=== PATIENT | female | born 1985 | race Caucasian/White ===

== ENCOUNTER 2016-09-20 08:20 | Emergency (ER) | payer OTHER ==
[2016-09-20 08:35] VITALS: BP 137/85
--- NOTE | 2016-09-20 08:49 | UC ---
Respiratory Complaint HPI - HPI Summary HPI Summary: ONSET TWO WEEKS AGO WITH SORE THROAT, SINUS CONGESTION. COUGH , PRODUCTIVE AT TIMES . NO FEVER OR CHILLS. no fever. glands were swollen when she had ST but they resolved/ no white spots. mild wheezing sporadic. may have had to use inhaler at some point with illness. Here with BF Carlin Yao who is here being seen in same room with same sx. + smoker. trying to quit. She has taken doxy before with good results. - History of Current Complaint Chief Complaint: UCRespiratory Stated Complaint: COUGH Time Seen by Provider: 09/20/16 08:48 Hx Last Menstrual Period: 08/31/16 - Allergies/Home Medications Allergies/Adverse Reactions: Allergies Allergy/AdvReac Type Severity Reaction Status Date / Time Penicillins Allergy Hives Verified 09/20/16 08:26 nicotine patch Allergy Swelling Uncoded 09/20/16 08:26 Home Medications: Home Medications Samnjbtukmjyz-Mrrbvctlsn-Cnyth [Destinee-[place] Plus Night C] 1 cap PO PRN [History] PMH/Surg Hx/FS Hx/Imm Hx Previously Healthy: Yes Endocrine History Of: Denies: Diabetes Cardiovascular History Of: Reports: Hypertension Denies: Cardiac Disorders Respiratory History Of: Denies: COPD - smoker, Asthma, Bronchitis, Pneumonia, Pulmonary Embolism - Surgical History Surgical History: None - Family History Known Family History: Positive: Other - dtr with asthma Negative: Cardiac Disease, Diabetes - Social History Alcohol Use: Rare Substance Use Type: None Smoking Status (MU): Light Every Day Tobacco Smoker Type: Cigarettes Amount Used/How Often: 1/2 PPD Length of Time of Smoking/Using Tobacco: 14 yrs Have You Smoked in the Last Year: Yes Household Exposure Type: Cigarettes Review of Systems Constitutional: Negative Skin: Negative Eyes: Negative ENT: Sore Throat, Nasal Discharge Respiratory: Cough Cardiovascular: Negative Gastrointestinal: Negative Genitourinary: Negative Motor: Negative Neurovascular: Negative Musculoskeletal: Negative Neurological: Negative Psychological: Negative All Other Systems Reviewed And Are Negative: Yes Physical Exam Triage Information Reviewed: Yes Appearance: Well-Nourished Vital Signs: Initial Vital Signs Temp 97.5 F 09/20/16 08:29 Pulse 75 09/20/16 08:29 Resp 18 09/20/16 08:29 BP 137/85 09/20/16 08:29 Pulse Ox 100 09/20/16 08:29 Vital Signs Reviewed: Yes Eye Exam: Normal Eyes: Positive: Conjunctiva Clear ENT: Positive: Pharyngeal erythema - + PND, no sinus tenderness, Nasal congestion, TMs normal. Negative: Tonsillar swelling, Tonsillar exudate Dental Exam: Normal Neck exam: Normal Neck: Positive: Supple, Nontender, No Lymphadenopathy Respiratory Exam: Normal Respiratory: Positive: Lungs clear, No respiratory distress, No accessory muscle use, Decreased breath sounds. Negative: Crackles, Rhonchi, Stridor, Wheezing Cardiovascular Exam: Normal Cardiovascular: Positive: RRR, No Murmur, Pulses Normal, Brisk Capillary Refill Abdominal Exam: Normal Abdomen Description: Positive: Nontender, Soft. Negative: CVA Tenderness (R), CVA Tenderness (L) Musculoskeletal Exam: Normal Neurological Exam: Normal Psychological Exam: Normal Skin Exam: Normal UC Diagnostic Evaluation - Laboratory O2 Sat by Pulse Oximetry: 100 Respiratory Course/Dx - Differential Dx/Diagnosis Differential Diagnosis/HQI/PQRI: Asthma, Bronchitis, Lower Resp Infection, Sinusitis Provider Diagnoses: Bronchitis, smoker Discharge - Discharge Plan Condition: Stable Disposition: HOME Prescriptions: Albuterol HFA INHALER* [Ventolin HFA Inhaler*] 2 puff INH Q4H PRN #1 mdi PRN Reason: Cough Doxycycline Hyclate [Doxycycline Hyclate Dr] 100 mg PO BID #20 tab Referrals: Anahy Rivera, [employer] [Primary Care Provider] - 4 Days Additional Instructions: Fluids, rest. stopping smoking will help. Take probiotic while on antibiotic. Make sure to use back up control because the antibiotic can interfere with the control.
== END 2016-09-20 09:21 | disposition home or self-care (01) ==
LOC: UCCORT 08:20
DX: J40 Bronchitis, not specified as acute or chronic (principal); F17.210 Nicotine dependence, cigarettes, uncomplicated; Z88.0 Allergy status to penicillin
CPT/HCPCS: 99212; G0463

== ENCOUNTER 2016-11-16 10:27 | Emergency (ER) | payer OTHER ==
[2016-11-16 11:58] VITALS: BP 144/87
--- NOTE | 2016-11-16 12:27 | UC ---
UC Dental HPI - HPI Summary HPI Summary: patient has had recent dental work, has appointment for teeth removal on 11/28. had has dental pain and it is starting to radiate to her ear. - History of Current Complaint Chief Complaint: UCDentalProblem Stated Complaint: DENTAL Time Seen by Provider: 11/16/16 12:13 Hx Obtained From: Patient Hx Last Menstrual Period: 3 weeks ago, nexplanon & oral control ?: No Onset/Duration: Sudden Onset, Lasting Days Severity: Severe Pain Intensity: 8 Pain Scale Used: 0-10 Numeric Aggravating: Chewing Alleviating: Nothing Related History: Previous Dental Care on Same Tooth - Allergies/Home Medications Allergies/Adverse Reactions: Allergies Allergy/AdvReac Type Severity Reaction Status Date / Time Penicillins Allergy Hives Verified 11/16/16 11:57 nicotine patch Allergy Swelling Uncoded 11/16/16 11:57 PMH/Surg Hx/FS Hx/Imm Hx Previously Healthy: Yes Endocrine History Of: Denies: Diabetes Cardiovascular History Of: Reports: Hypertension Denies: Cardiac Disorders Respiratory History Of: Denies: COPD - smoker, Asthma, Bronchitis, Pneumonia, Pulmonary Embolism - Surgical History Surgical History: None - Family History Known Family History: Positive: None, Other - dtr with asthma Negative: Cardiac Disease, Diabetes - Social History Alcohol Use: Rare Substance Use Type: None Smoking Status (MU): Light Every Day Tobacco Smoker Type: Cigarettes Amount Used/How Often: 1/2 PPD Length of Time of Smoking/Using Tobacco: 14 yrs Have You Smoked in the Last Year: Yes Household Exposure Type: Cigarettes Review of Systems Constitutional: Negative Skin: Negative Eyes: Negative ENT: Dental Pain, Ear Ache Respiratory: Negative Cardiovascular: Negative Gastrointestinal: Negative Genitourinary: Negative Motor: Negative Neurovascular: Negative Musculoskeletal: Negative Neurological: Headache Psychological: Negative All Other Systems Reviewed And Are Negative: Yes Physical Exam Triage Information Reviewed: Yes Appearance: Well-Appearing, Well-Nourished, Pain Distress Vital Signs: Initial Vital Signs Temp 98.5 F 11/16/16 11:55 Pulse 75 11/16/16 11:55 Resp 14 11/16/16 11:55 BP 144/87 11/16/16 11:55 Pulse Ox 99 11/16/16 11:55 Vital Signs Reviewed: Yes Eye Exam: Normal ENT Exam: Normal ENT: Positive: Normal ENT inspection, Hearing grossly normal, Pharyngeal erythema, TMs normal Dental: Positive: Gross Decay/Caries @, Dental Fracture @, Abscess @ Neck exam: Normal Neck: Positive: Supple, Nontender Respiratory Exam: Normal Respiratory: Positive: Chest non-tender, Lungs clear, Normal breath sounds Cardiovascular Exam: Normal Cardiovascular: Positive: RRR, No Murmur, Pulses Normal Abdominal Exam: Normal Abdomen Description: Positive: Nontender, No Organomegaly, Soft Bowel Sounds: Positive: Present Musculoskeletal Exam: Normal Musculoskeletal: Positive: Strength Intact, ROM Intact, No Edema Neurological Exam: Normal Neurological: Positive: Alert, Muscle Tone Normal Psychological Exam: Normal Skin Exam: Normal Dental Complaint Course/Dx - Course Course Of Treatment: hx obtained, exam performed, meds prescribed for dental abcess, educated on pain relief and oral hygiene - Differential Dx/Diagnosis Differential Diagnosis/Dx: Dental Abscess, Dental Caries, Gingivitis, Peridontic Disease, Peritonsillar Abcess, Pharyngitis, TMJ Syndrome Provider Diagnoses: dental abcess, ear pain, dental caries Discharge - Discharge Plan Condition: Stable Disposition: HOME Prescriptions: Clindamycin Cap(NF) [Cleocin 300 mg Cap(NF)] 300 mg PO TID #30 cap HYDROcodone/ACETAMIN 5-325 MG* [[place] 5-325 TAB*] 1 tab PO Q8H PRN #15 tab MDD 15 mg PRN Reason: Pain Patient Education Materials: Dental Abscess (ED) Additional Instructions: take the medication as prescribed. continue with mouth rinses, Follow up with your dentist at upcoming appointment, soon if needed.
== END 2016-11-16 12:53 | disposition home or self-care (01) ==
LOC: UCCORT 10:27
DX: K04.7 Periapical abscess without sinus (principal); K02.9 Dental caries, unspecified; H92.09 Otalgia, unspecified ear; Z88.0 Allergy status to penicillin; F17.210 Nicotine dependence, cigarettes, uncomplicated
CPT/HCPCS: 99212; G0463

== ENCOUNTER 2017-04-27 09:45 | Emergency (ER) | payer SELFPAY ==
[2017-04-27 10:25] VITALS: BP 116/64
--- NOTE | 2017-04-27 10:45 | UC ---
Skin Complaint HPI - HPI Summary HPI Summary: 31 y/o female presents to the urgent care c/o insect bites in her LF foot and LF ring finger 2 days. Pt states now her medial aspect of foot is getting swollen, itches and painful. Pain is 6/10. Pt denies fever, SOB, chest pain,N/V/ D - History of Current Complaint Chief Complaint: UCSkin Time Seen by Provider: 04/27/17 10:40 Stated Complaint: SKIN CONCERN Hx Obtained From: Patient Hx Last Menstrual Period: 04/12/17 ?: No Onset/Duration: Gradual Onset, Lasting Days, Still Present Timing: Constant Onset Severity: Mild Current Severity: Moderate Pain Intensity: 6 Pain Scale Used: 0-10 Numeric Location: Discrete - LF foot and LF #4 ring finger Character: Swelling, Pruritus, Pain, Redness, Raised, Painful Aggravating: Touch Alleviating: Antihistamines Associated Signs & Symptoms: Positive: Negative. Negative: Nausea, Vomiting, Numbness, Thirst, Difficulty Breathing, Fever, Wheezing, Throat Tightening, Red Streaks Related History: Insect Bite/Sting - Allergy/Home Medications Allergies/Adverse Reactions: Allergies Allergy/AdvReac Type Severity Reaction Status Date / Time Penicillins Allergy Hives Verified 04/27/17 10:20 nicotine patch Allergy Swelling Uncoded 04/27/17 10:20 Home Medications: Home Medications Etonogestrel IMPLANT(NF) [Implanon (NF)-not available] 68 mg IMPLANT SEE INSTRUCTIONS 04/27/17 [History Confirmed 04/27/17] Review of Systems Constitutional: Negative Skin: Rash - LF foot and LF ring finger Eyes: Negative ENT: Negative Respiratory: Negative Cardiovascular: Negative Gastrointestinal: Negative Genitourinary: Negative Motor: Negative Neurovascular: Negative Musculoskeletal: Negative Neurological: Negative Psychological: Negative All Other Systems Reviewed And Are Negative: Yes PMH/Surg Hx/FS Hx/Imm Hx Previously Healthy: Yes Cardiovascular History: Hypertension - Surgical History Surgical History: None - Family History Known Family History: Positive: Hypertension, Other - dtr with asthma Negative: Cardiac Disease, Diabetes - Social History Occupation: Employed Full-time Lives: With Family Alcohol Use: Rare Substance Use Type: None Smoking Status (MU): Heavy Every Day Tobacco Smoker Type: Cigarettes Amount Used/How Often: 1/2 PPD Length of Time of Smoking/Using Tobacco: 14 yrs Have You Smoked in the Last Year: Yes Household Exposure Type: Cigarettes Physical Exam Triage Information Reviewed: Yes Appearance: Well-Appearing, No Pain Distress, Well-Nourished, Obese Vital Signs: Initial Vital Signs Temp 97.6 F 04/27/17 10:21 Pulse 58 04/27/17 10:21 Resp 16 04/27/17 10:21 BP 116/64 04/27/17 10:21 Pulse Ox 100 04/27/17 10:21 Vital Signs Reviewed: Yes Eye Exam: Normal Eyes: Positive: Conjunctiva Clear ENT Exam: Normal ENT: Positive: Normal ENT inspection, Hearing grossly normal, Pharynx normal, TMs normal Dental Exam: Normal Neck exam: Normal Neck: Positive: Supple, Nontender, No Lymphadenopathy Respiratory Exam: Normal Respiratory: Positive: Chest non-tender, Lungs clear, Normal breath sounds Cardiovascular Exam: Normal Cardiovascular: Positive: RRR, No Murmur, Pulses Normal, Brisk Capillary Refill Abdominal Exam: Normal Abdomen Description: Positive: Nontender, No Organomegaly, Soft. Negative: CVA Tenderness (R), CVA Tenderness (L) Bowel Sounds: Positive: Present Musculoskeletal Exam: Normal Musculoskeletal: Positive: Strength Intact, ROM Intact, No Edema Neurological Exam: Normal Psychological Exam: Normal Skin: Positive: rashes - Left foot medial aspect with erythemaotus with indistict borders, mild induration, tender to palaption, central yellowish drainage. Size 2cm x2cm. LF #4 phalanx with 2 erythemaotus papaules s/o insect bites Course/Dx - Course Course Of Treatment: 31 y/o female presents to the urgent care c/o insect bites in her LF foot and LF ring finger 2 days. Pt states now her medial aspect of foot is getting swollen, itches and painful. Pain is 6/10. Pt denies fever, SOB , chest pain,N/V/D. Hx obtained. Pt Rx Bactrim PO for cellulitis, Benadryl for Pruritis. Pt advised if redness doubles in size in more than 48hrs and she develops fever to go to the ER for further treatment . Pt understood and agreed. - Differential Diagnoses - Skin Complaint Differential Diagnoses: Allergic Reaction, Cellulitis, Local Allergic Reaction, MRSA, Tick Born Illness, Urticaria - Diagnoses Provider Diagnoses: 1-Left foot cellulitis s/p insect bite Discharge - Discharge Plan Condition: Stable Disposition: HOME Prescriptions: Bacitracin OINTMENT* 1 applic TOPICAL TID #1 tube Sulfamethox/Trimethoprim DS* [Bactrim DS 800/160 TAB*] 1 tab PO BID #14 tab diPHENhydraMINE PO* [Benadryl PO 25 MG TAB*] 25 mg PO TID PRN #15 tab PRN Reason: Pruritis Patient Education Materials: Insect Bite or Sting (ED) Referrals: Anahy Rivera RESOURCE TECHNICIAN [Primary Care Provider] - If Needed Additional Instructions: Please take full course of antibiotic as directed to avoid resistance. Take the Benadryl Po to alleviate itchiness. If symptoms do not improve please return to the urgent care or f/u with your PCP for further management.
== END 2017-04-27 11:19 | disposition home or self-care (01) ==
LOC: UCCORT 09:45
DX: S90.862A Insect bite (nonvenomous), left foot, initial encounter (principal); L03.116 Cellulitis of left lower limb; W57.XXXA Bitten or stung by nonvenomous insect and other nonvenomous arthropods, initial encounter; Y93.9 Activity, unspecified; Y92.9 Unspecified place or not applicable; I10 Essential (primary) hypertension; E66.9 Obesity, unspecified; Z88.0 Allergy status to penicillin; F17.210 Nicotine dependence, cigarettes, uncomplicated
CPT/HCPCS: 99212; G0463

== ENCOUNTER 2018-01-13 11:51 | Emergency (ER) | payer OTHER ==
[2018-01-13 12:14] VITALS: BP 119/66
--- NOTE | 2018-01-13 12:48 | UC ---
Back Pain HPI - HPI Summary HPI Summary: PT C/O A 1 MONTH HX NON TRAUMATIC PAIN IN HER LOW BACK THAT SOMETIMES RADIATES INTO BOTH LEGS. NO HX INJURY, ABDOMENAL PAIN, FEVER, IVDA, BOWEL/BLADDER DYSFUNCTION. SEEN [facility] ER 3 WEEKS AGO AND HAD NEG XRAYS. TX MM RELAXOR. TAKING OTC NSAID(ALEVE). STANDS AT WORK. - History of Current Complaint Chief Complaint: UCBackPain Stated Complaint: LOWER BACK PAIN & SPASMS Time Seen by Provider: 01/13/18 12:40 Hx Obtained From: Patient Hx Last Menstrual Period: 12/13/17 Onset/Duration: Gradual Onset Timing: Constant Pain Intensity: 8 Character: Aching Aggravating Factor(s): Movement Alleviating Factor(s): Nothing Associated Signs And Symptoms: Negative: Weakness, Numbness, Tingling, Abdominal Pain, Flank Pain, Weight Loss - Risk Factors AAA Risk Factors: Negative Cauda Equina Risk Factors: Negative Epidural Abscess Risk Factors: Negative - Allergies/Home Medications Allergies/Adverse Reactions: Allergies Allergy/AdvReac Type Severity Reaction Status Date / Time Penicillins Allergy Hives Verified 01/13/18 12:15 nicotine patch Allergy Swelling Uncoded 01/13/18 12:15 PMH/Surg Hx/FS Hx/Imm Hx Cardiovascular History: Hypertension - Surgical History Surgical History: None - Family History Known Family History: Positive: None, Hypertension, Other - dtr with asthma Negative: Cardiac Disease, Diabetes - Social History Occupation: Employed Full-time Lives: With Family Alcohol Use: Rare Substance Use Type: None Smoking Status (MU): Heavy Every Day Tobacco Smoker Type: Cigarettes Amount Used/How Often: 1/2 PPD Length of Time of Smoking/Using Tobacco: 14 yrs Have You Smoked in the Last Year: Yes Household Exposure Type: Cigarettes - Immunization History Vaccination Up to Date: Yes Review of Systems Constitutional: Negative Skin: Negative Eyes: Negative ENT: Negative Respiratory: Negative Cardiovascular: Negative Gastrointestinal: Negative Genitourinary: Negative Motor: Negative Neurovascular: Negative Musculoskeletal: Other: - PAIN LOW BACK WITH EPISODIC SHARP PAINS INTO BACKS OF LEGS WITH CERTAIN MOVEMENT. Neurological: Negative Psychological: Negative All Other Systems Reviewed And Are Negative: Yes Physical Exam Triage Information Reviewed: Yes Appearance: Well-Appearing Vital Signs: Initial Vital Signs Temp 99.7 F 01/13/18 12:08 Pulse 62 01/13/18 12:08 Resp 16 01/13/18 12:08 BP 119/66 01/13/18 12:08 Pulse Ox 99 01/13/18 12:08 Vital Signs Reviewed: Yes Eyes: Positive: Conjunctiva Clear ENT: Positive: Normal ENT inspection Neck: Positive: Supple, Nontender, No Lymphadenopathy Respiratory: Positive: Lungs clear, Normal breath sounds Cardiovascular: Positive: RRR, No Murmur, Pulses Normal Abdomen Description: Positive: Nontender, No Organomegaly, Soft. Negative: Distended, Guarding Bowel Sounds: Positive: Present Musculoskeletal: Positive: Other: - NO GROSS DEFORMITY, SWELLING, DISCOLORATION OR RASH. TENDER PARASPINAL MM LUMBAR REGION, WORSE WITH FLEXION AND EXTENSION LUMBAR REGION. 2+ REFLEXES AND 5/5 STRENGTH X4. NEG SADDLE ANESTHESIA. STABLE GAIT. + STRAIGHT LEG RAISES X2. Neurological: Positive: Alert Psychological: Positive: Age Appropriate Behavior Skin Exam: Normal Back Pain Course/Dx - Course Course Of Treatment: NO CONCERN FOR INFECTION, ACUTE ABDOMEN OR CAUDA EQUINA. BACK XRAYS BY [facility] ER REPORTED UNREMARKABLE. HX/EXAM C/W LOW BACK PAIN AND LUMBAR RADICULOPATHY. PT ADVISED TO D/C ALL NSAID USE SINCE NOT HELPING AND HX HTN. WILL FINISH HER MM RELAXOR. WILL ADD MEDROL DOSE NITZA AND REFER TO PT AND CLOSE F/U PCP. - Differential Dx/Diagnosis Provider Diagnoses: LOW BACK PAIN. LUMBAR RADICULOPATHY Discharge - Sign-Out/Discharge Documenting (check all that apply): Discharge/Admit/Transfer - Discharge Plan Condition: Stable Disposition: HOME Prescriptions: methylPREDNISolone [Medrol Dosepak 4 MG*] 0 mg PO .SEE NITZA INSTRUCTION #1 tab Patient Education Materials: Lumbar Radiculopathy (ED), Back Pain (ED) Forms: *Work Release Referrals: Anahy Rivera NP [Primary Care Provider] - 7 Days Additional Instructions: CALL PHYSICAL THERAPY TODAY FOR NEXT AVAILABLE APPOINTMENT - Billing Disposition and Condition Condition: STABLE Disposition: HOME
== END 2018-01-13 13:27 | disposition home or self-care (01) ==
LOC: UCCORT 11:51
DX: M54.5 Low back pain (principal); M54.16 Radiculopathy, lumbar region; Z88.0 Allergy status to penicillin; Z88.8 Allergy status to other drugs, medicaments and biological substances; I10 Essential (primary) hypertension
CPT/HCPCS: 99212; G0463

== ENCOUNTER 2018-12-28 09:37 | Emergency (ER) | payer OTHER ==
[2018-12-28 11:42] VITALS: BP 125/71
--- NOTE | 2018-12-28 12:29 | UC ---
Complaint Female HPI - HPI Summary HPI Summary: 33 yo female with vaginal d/c and itch x 1 week dyspareunia no f/c no n/v was on antibiotics about 3 weeks ago no hx STD's , No hx vaginitis - History Of Current Complaint Chief Complaint: UCGU Stated Complaint: URINARY COMPLAINT Time Seen by Provider: 12/28/18 12:12 Hx Obtained From: Patient Hx Last Menstrual Period: 12/19/18 Onset/Duration: Gradual Onset, Lasting Days Timing: Constant Severity Initially: Mild Severity Currently: Moderate Pain Intensity: 0 Pain Scale Used: 0-10 Numeric Aggravating Factor(s): Century Alleviating Factor(s): Nothing Associated Signs And Symptoms: Positive: Vaginal Discharge. Negative: Nausea, Genital Swelling, Genital Blisters, Retained Foregin Body (Specify) - Allergies/Home Medications Allergies/Adverse Reactions: Allergies Allergy/AdvReac Type Severity Reaction Status Date / Time Penicillins Allergy Hives Verified 12/28/18 11:43 nicotine patch Allergy Swelling Uncoded 12/28/18 11:43 Home Medications: Home Medications Hydrochlorothiazide TAB* [Hydrodiuril TAB*] 25 mg PO DAILY 12/28/18 [History Confirmed 12/28/18] PMH/Surg Hx/FS Hx/Imm Hx Previously Healthy: Yes - Surgical History Surgical History: None - Family History Known Family History: Positive: Hypertension, Other - dtr with asthma Negative: Cardiac Disease, Diabetes - Social History Alcohol Use: Rare Substance Use Type: None Smoking Status (MU): Heavy Every Day Tobacco Smoker Type: Cigarettes Amount Used/How Often: 1/2 PPD Length of Time of Smoking/Using Tobacco: since age 17 Have You Smoked in the Last Year: Yes Household Exposure Type: Cigarettes - Immunization History Vaccination Up to Date: Yes Review of Systems All Other Systems Reviewed And Are Negative: Yes Constitutional: Positive: Negative Skin: Positive: Negative Eyes: Positive: Negative ENT: Positive: Negative Respiratory: Positive: Negative Gastrointestinal: Positive: Negative Genitourinary: Positive: Vaginal/Penile Itching, Vaginal/Penile Discharge. Negative: Dysuria, Hematuria, Frequency, Urgency Neurovascular: Positive: Negative Musculoskeletal: Positive: Negative Neurological: Positive: Negative Psychological: Positive: Negative Physical Exam Triage Information Reviewed: Yes Appearance: Well-Appearing, No Pain Distress, Well-Nourished Vital Signs: Initial Vital Signs Temp 97.4 F 12/28/18 11:35 Pulse 59 12/28/18 11:35 Resp 14 12/28/18 11:35 BP 125/71 12/28/18 11:35 Pulse Ox 99 12/28/18 11:35 Vital Signs Reviewed: Yes Eyes: Positive: Conjunctiva Clear ENT: Positive: Hearing grossly normal. Negative: Nasal congestion, Nasal drainage, Tonsillar swelling, Tonsillar exudate, Trismus, Muffled voice, Hoarse voice Dental Exam: Normal Neck: Positive: Supple, Nontender, No Lymphadenopathy Respiratory: Positive: Lungs clear, Normal breath sounds, No respiratory distress, No accessory muscle use Cardiovascular: Positive: RRR, No Murmur Abdomen Description: Positive: Nontender, No Organomegaly, Soft. Negative: CVA Tenderness (R), CVA Tenderness (L) Bowel Sounds: Positive: Absent Pelvic Exam: Positive: External Exam Normal, Discharge - thin. Negative: Cervicitis, Tender w/ Cervical Motion, Tender Adnexa, Tender Uterus, Ulcers Musculoskeletal: Positive: ROM Intact, No Edema Neurological: Positive: Alert, Muscle Tone Normal Psychological Exam: Normal Skin Exam: Normal Complaint Female Dx - Differential Dx/Diagnosis Provider Diagnosis: Vaginitis Discharge - Sign-Out/Discharge Documenting (check all that apply): Patient Departure All imaging exams completed and their final reports reviewed: No Studies - Discharge Plan Condition: Stable Disposition: HOME Prescriptions: Fluconazole 150 MG (NF) [Diflucan 150 mg (NF)] 150 mg PO ONCE #1 tab metroNIDAZOLE [Flagyl] 500 mg PO BID #14 tablet Patient Education Materials: Vaginitis (ED) Referrals: Anahy Rviera NP [Primary Care Provider] - - Billing Disposition and Condition Condition: STABLE Disposition: Home
--- NOTE | 2018-12-30 07:06 | UC ---
- Progress Note Progress Note: urine culture, neg final Neg Garderella, darnell no change charliej 12/30/18 Course/Dx - Diagnoses Provider Diagnoses: Vaginitis Discharge - Sign-Out/Discharge Documenting (check all that apply): Post-Discharge Follow Up All imaging exams completed and their final reports reviewed: No Studies - Discharge Plan Condition: Stable Disposition: HOME Prescriptions: Fluconazole 150 MG (NF) [Diflucan 150 mg (NF)] 150 mg PO ONCE #1 tab metroNIDAZOLE [Flagyl] 500 mg PO BID #14 tablet Patient Education Materials: Vaginitis (ED) Referrals: Anahy Rivera NP [Primary Care Provider] - - Billing Disposition and Condition Condition: STABLE Disposition: Home
[2018-12-30 12:45] LABS: Neisseria gonorrhoeae (GC) RNA Negative (Negative)
[2018-12-30 13:05] LABS: Trichomonas vaginalis Result Positive (Negative)
--- NOTE | 2018-12-31 07:31 | UC ---
- Progress Note Progress Note: Culture comes back from December 28, 2018 positive for Trichomonas. Is negative for chlamydia and gonorrhea. Patient was treated with Diflucan 150 mg by mouth once and Flagyl 500 mg by mouth twice a day 7 days therefore she is adequately treated for the Trichomonas. Nursing to call patient to inform her of the diagnosis. Course/Dx - Diagnoses Provider Diagnoses: Vaginitis Discharge - Sign-Out/Discharge Documenting (check all that apply): Patient Departure All imaging exams completed and their final reports reviewed: No Studies - Discharge Plan Condition: Stable Disposition: HOME Prescriptions: Fluconazole 150 MG (NF) [Diflucan 150 mg (NF)] 150 mg PO ONCE #1 tab metroNIDAZOLE [Flagyl] 500 mg PO BID #14 tablet Patient Education Materials: Vaginitis (ED) Referrals: Anahy Rivera NP [Primary Care Provider] - - Billing Disposition and Condition Condition: STABLE Disposition: Home
== END 2018-12-28 12:43 | disposition home or self-care (01) ==
LOC: UCCORT 09:37
DX: A59.01 Trichomonal vulvovaginitis (principal); N94.10 Unspecified dyspareunia; Z88.0 Allergy status to penicillin; Z88.8 Allergy status to other drugs, medicaments and biological substances; F17.210 Nicotine dependence, cigarettes, uncomplicated
CPT/HCPCS: 81003; 84702; 87086; 87480; 87491; 87510; 87591; 87661; 99212; G0463

== ENCOUNTER 2019-07-14 18:19 | Emergency (ER) | payer BC, MEDICAID ==
[2019-07-14 19:27] VITALS: BP 143/78
--- NOTE | 2019-07-14 19:30 | UC ---
Complaint Female HPI - HPI Summary HPI Summary: Patient is a 34-year-old female presenting with abnormal yellow and malodorous vaginal discharge 4 days. Patient states that symptoms are similar to when she was diagnosed with Trichomonas back in December. States she is certain that she and her fiance are both monogamous and she is unsure how she would have gotten it again.. Patient denies urinary symptoms. Denies vaginal burning and itching. Denies dyspareunia. Denies abdominal pain. Denies abnormal bleeding and states her last menstrual period ended one week ago. Denies nausea, vomiting, fever, chills. Patient states she would like a pelvic exam and to be tested for possible infections. - History Of Current Complaint Chief Complaint: UCGU Stated Complaint: URINARY COMPLAINT Hx Obtained From: Patient Hx Last Menstrual Period: 07/03/19 Onset/Duration: Sudden Onset, Lasting Days Pain Intensity: 0 - Allergies/Home Medications Allergies/Adverse Reactions: Allergies Allergy/AdvReac Type Severity Reaction Status Date / Time nickel Allergy Unknown Verified 07/14/19 19:27 Reaction Details Penicillins Allergy Hives Verified 07/14/19 19:27 nicotine patch Allergy Swelling Uncoded 07/14/19 19:27 Home Medications: Home Medications Dextromethorphn/Acetaminoph/Cp [Vicks Nyquil Cold & Flu N] 1 liq PO QPM PRN [History Confirmed 07/14/19] PMH/Surg Hx/FS Hx/Imm Hx - Surgical History Surgical History: None - Family History Known Family History: Positive: None, Hypertension, Other - dtr with asthma Negative: Cardiac Disease, Diabetes - Social History Alcohol Use: Rare Substance Use Type: None Smoking Status (MU): Heavy Every Day Tobacco Smoker Type: Cigarettes Amount Used/How Often: 1/2 PPD Length of Time of Smoking/Using Tobacco: since age 17 Have You Smoked in the Last Year: Yes Household Exposure Type: Cigarettes - Immunization History Vaccination Up to Date: Yes Review of Systems All Other Systems Reviewed And Are Negative: Yes Constitutional: Positive: Negative. Negative: Fever, Chills Skin: Positive: Negative Gastrointestinal: Positive: Negative. Negative: Vomiting, Nausea Genitourinary: Positive: Vaginal/Penile Discharge. Negative: Dysuria, Hematuria , Frequency, Urgency, Vaginal/Penile Burning, Vaginal/Penile Itching, Vaginal/ Penile Pain, Vaginal/Penile Tenderness, Ulceration/Lesion, Abnormal Bleeding Musculoskeletal: Positive: Negative Neurological: Positive: Negative Physical Exam Triage Information Reviewed: Yes Appearance: Well-Appearing, No Pain Distress, Well-Nourished Vital Signs: Initial Vital Signs Temp 99 F 07/14/19 19:18 Pulse 71 07/14/19 19:18 Resp 24 07/14/19 19:18 BP 143/78 07/14/19 19:18 Pulse Ox 100 07/14/19 19:18 Lab Results 07/14/19 Range/Units 19:47 POC Urine Color Yellow POC Urine Clarity Clear POC Urine pH 7.0 (5-9) POC Ur Specif [place] 1.020 (1.010-1.030) POC Urine Protein Trace A (Negative) POC Ur Glucose (UA) Negative (Negative) POC Urine Ketones Negative (Negative) POC Urine Blood Negative (Negative) POC Urine Nitrite Negative (Negative) POC Urine Bilirubin Negative (Negative) POC Urine Urobilinogen 0.2 (Negative) POC U Leukocyte Esteras 2+ A (Negative) Vital Signs Reviewed: Yes Eyes: Positive: Conjunctiva Clear ENT: Positive: Hearing grossly normal Neck: Positive: Supple Pelvic Exam: Positive: External Exam Normal, Discharge - yellow/green thin discharge, Tender w/ Cervical Motion. Negative: Active Bleeding, Blood, Cervicitis, Lesions, Tender Adnexa, Tender Uterus, Ulcers Neurological: Positive: Alert Psychological: Positive: Age Appropriate Behavior Skin Exam: Normal Complaint Female Dx - Course Course Of Treatment: I am treating for possible Trichomonas infection with Flagyl. Patient received first dose here. Patient was tested for yeast, BV, Trichomonas, gonorrhea, and chlamydia. Patient declined testing for syphilis and HIV. Pelvic exam was performed with JAI Romero in the room helping. I informed the patient that she will be notified with any positive results that warrant a change in treatment. Instructed her to follow up with PCP if symptoms persist. Patient voiced understanding and agreed with the treatment plan. - Differential Dx/Diagnosis Provider Diagnosis: Vaginal discharge Discharge ED - Sign-Out/Discharge Documenting (check all that apply): Patient Departure All imaging exams completed and their final reports reviewed: No Studies - Discharge Plan Condition: Stable Disposition: HOME Prescriptions: metroNIDAZOLE [Flagyl] 500 mg PO BID #14 tablet Patient Education Materials: Sexually Transmitted Diseases (ED) Referrals: Anahy Rivera NP [Primary Care Provider] - If Needed Additional Instructions: As discussed, take Flagyl as prescribed for treatment of possible Trichomonas. Do not consume alcohol of any kind while taking this medication. You have been tested for yeast, bacterial vaginosis, trichomonas, gonorrhea, and chlamydia. You will be notified with any positive results that warrant a change in treatment. Follow up with your PCP if symptoms persist. - Billing Disposition and Condition Condition: STABLE Disposition: Home
[2019-07-14] MEDS ORDERED: metroNIDAZOLE TAB* 250 MG PO ONE (20:17)
--- NOTE | 2019-07-16 08:00 | UC ---
- Progress Note Progress Note: Vaginal DNA from July 14, 2019 comes back as positive Trichomonas. It is negative for Gardnerella and Rosita. Area chlamydia are pending. Patient's been treated with Flagyl 500 mg by mouth twice a day for 7 days which is the appropriate treatment for Trichomonas. Nursing to call patient inform them of the results let them know there being treated appropriately and that gonorrhea chlamydia are still pending. Nursing also to inform the patient It is recommended that her sexual partner also gets treated for Trichomonas simultaneously. Course/Dx - Diagnoses Provider Diagnoses: Vaginal discharge Discharge ED - Sign-Out/Discharge Documenting (check all that apply): Patient Departure All imaging exams completed and their final reports reviewed: No Studies - Discharge Plan Condition: Stable Disposition: HOME Prescriptions: metroNIDAZOLE [Flagyl] 500 mg PO BID #14 tablet Patient Education Materials: Sexually Transmitted Diseases (ED) Referrals: Anahy Rivera, [place] [Primary Care Provider] - If Needed Additional Instructions: As discussed, take Flagyl as prescribed for treatment of possible Trichomonas. Do not consume alcohol of any kind while taking this medication. You have been tested for yeast, bacterial vaginosis, trichomonas, gonorrhea, and chlamydia. You will be notified with any positive results that warrant a change in treatment. Follow up with your PCP if symptoms persist. - Billing Disposition and Condition Condition: STABLE Disposition: Home
[2019-07-16 13:24] LABS: Chlamydia trachomatis NAA Negative (Negative); Neisseria gonorrhoeae (GC) NAA Negative (Negative)
== END 2019-07-14 20:27 | disposition home or self-care (01) ==
LOC: UCCORT 18:19
DX: N89.8 Other specified noninflammatory disorders of vagina (principal); F17.210 Nicotine dependence, cigarettes, uncomplicated; Z88.0 Allergy status to penicillin; Z91.09 Other allergy status, other than to drugs and biological substances
CPT/HCPCS: 81003; 87086; 87480; 87491; 87510; 87591; 87660; 99213; A9270-GY; G0463

== ENCOUNTER 2019-09-30 19:32 | Emergency (ER) | payer BC, MEDICAID ==
[2019-09-30 19:43] VITALS: BP 119/92
--- NOTE | 2019-09-30 20:19 | UC ---
Ear Complaint HPI - HPI Summary HPI Summary: 34-year-old female who has had flulike symptoms for the past 5 days and today she has bilateral earache. - History of Current Complaint Chief Complaint: UCGeneralIllness Stated Complaint: COUGH, CHILLS, VOMITING, SORE TONGUE Time Seen by Provider: 09/30/19 20:01 Hx Obtained From: Patient Hx Last Menstrual Period: 07/03/19 ?: No Onset/Duration: Gradual Onset Severity Initially: Moderate Severity Currently: Moderate Pain Intensity: 8 Aggravating Factors: Nothing Alleviating Factors: Nothing Associated Signs/Symptoms: Positive: URI Symptoms Related History: Smoking - Allergies/Home Medications Allergies/Adverse Reactions: Allergies Allergy/AdvReac Type Severity Reaction Status Date / Time nickel Allergy Unknown Verified 09/30/19 19:43 Reaction Details Penicillins Allergy Hives Verified 09/30/19 19:43 nicotine patch Allergy Swelling Uncoded 09/30/19 19:43 PMH/Surg Hx/FS Hx/Imm Hx Previously Healthy: Yes Cardiovascular History: Hypertension - Surgical History Surgical History: None - Family History Known Family History: Positive: None, Hypertension, Other - dtr with asthma Negative: Cardiac Disease, Diabetes - Social History Alcohol Use: Rare Substance Use Type: None Smoking Status (MU): Heavy Every Day Tobacco Smoker Type: Cigarettes Amount Used/How Often: 1/2 PPD Length of Time of Smoking/Using Tobacco: since age 17 Have You Smoked in the Last Year: Yes Household Exposure Type: Cigarettes - Immunization History Vaccination Up to Date: Yes Review of Systems All Other Systems Reviewed And Are Negative: Yes Constitutional: Positive: Fever, Chills ENT: Positive: Ear Ache - Bilateral earache, Nasal Discharge Respiratory: Positive: Cough Musculoskeletal: Positive: Myalgia Is Patient Immunocompromised?: No Physical Exam Triage Information Reviewed: Yes Appearance: Well-Appearing, No Pain Distress, Well-Nourished Vital Signs: Initial Vital Signs Temp 98.9 F 09/30/19 19:38 Pulse 72 09/30/19 19:38 Resp 20 09/30/19 19:38 BP 119/92 09/30/19 19:38 Pulse Ox 100 09/30/19 19:38 Vital Signs Reviewed: Yes Eyes: Positive: Conjunctiva Clear ENT: Positive: Hearing grossly normal, Pharynx normal, TM red - Left tympanic membrane with erythema and moderate landmarks. Right tympanic membranes pearly van with [place] and light reflex., Uvula midline Neck: Positive: Supple, Nontender, No Lymphadenopathy Respiratory: Positive: Lungs clear, Normal breath sounds, No respiratory distress, No accessory muscle use Cardiovascular: Positive: RRR, No Murmur, Pulses Normal, Brisk Capillary Refill Musculoskeletal Exam: Normal Neurological Exam: Normal Psychological Exam: Normal Skin Exam: Normal Ear Complaint Course/Dx - Course Course Of Treatment: Patient is comfortable here, I'm giving her off work until Saturday. I believe she also has influenza however because she does not have any chronic illnesses and she is 5 days into the illness I don't think Tamiflu is going to help. - Differential Dx/Diagnosis Provider Diagnosis: Left otitis media, Influenza Discharge ED - Sign-Out/Discharge Documenting (check all that apply): Patient Departure All imaging exams completed and their final reports reviewed: No Studies - Discharge Plan Condition: Fair Disposition: HOME Prescriptions: Azithromyxin NITZA (NF) [Z-Nitza (Zithromax) 250 mg tabs #6] 2 tab PO .TODAY, THEN 1 DAILY #6 tab Patient Education Materials: Influenza (DC), Ear Infection (ED) Forms: *Work Release Referrals: Anahy Rivera NP [Primary Care Provider] - Additional Instructions: Increase fluids, rest, follow-up with your primary care provider if no improvement by Saturday. - Billing Disposition and Condition Condition: FAIR Disposition: Home
[2019-09-30] MEDS ORDERED: Azithromycin TAB* 250 MG PO ONE (20:24)
== END 2019-09-30 20:28 | disposition home or self-care (01) ==
LOC: UCCORT 19:32
DX: H66.92 Otitis media, unspecified, left ear (principal); J11.1 Influenza due to unidentified influenza virus with other respiratory manifestations; I10 Essential (primary) hypertension; F17.210 Nicotine dependence, cigarettes, uncomplicated; Z88.0 Allergy status to penicillin; Z91.09 Other allergy status, other than to drugs and biological substances
CPT/HCPCS: 99212; A9270-GY; G0463